=== PATIENT | male | born 1985 | race Caucasian/White ===

== ENCOUNTER 2018-06-30 15:17 | Emergency (ER) | payer OTHER, SELFPAY ==
[2018-06-30 15:20] VITALS: BP 137/109; PULSE 133; RESP 16; TEMP 36.6; BMI 23.8
--- NOTE | 2018-06-30 16:17 | ED.VISSUMM ---
- ER Visit Summary Date of Service: 06/30/18 Chief Complaint: Foreign body History of Present Illness: The patient is a 33 M with a suspected esophageal foreign body. Patient has a history of this. He had an initial injury about 10 years ago with some kind of ingestion that he thinks was a lie which caused a burn and a stricture. He has required dilation. He has been taking omeprazole. Last night he was eating chicken and he thinks a piece stuck. This is happened before and usually it passes by the next day, but today it did not improve. He cannot even pass liquids. No other complaints. Physical Examination: Afebrile and vital signs unremarkable. Alert and oriented. No acute distress. Sitting, breathing, moving comfortably. Lungs are clear. Heart is regular. Abdomen soft. Test Results: None performed Emergency Department Course and Treatment: Patient attempted to pass water but was unable. He then tried to drink Coca-[employer]a through a straw but this was unsuccessful. I spoke with Drs. Holm and Yolande at this facility. They are concerned with his history of stricture and with the duration of this foreign body that he should see a GI specialist. Patient was seen previously in [place] and requested summa. Patient was accepted by Dr. Bradley. Treatment Plan: As above Disposition: Transfer to [facility] ER Impression: 1. Esophageal foreign body This note was generated with [employer] dictation software. It may contain incorrect words, spelling, and punctuation that were not noted in review of the chart prior to signing ED Disposition - Plan for ED Patient: [facility] [Primary Care Provider] -
[2018-06-30 17:33] VITALS: BP 121/83; PULSE 67; RESP 18; O2SAT 99
[2018-06-30 17:51] VITALS: BP 116/80; PULSE 90; RESP 18; O2SAT 99
== END 2018-06-30 18:20 | disposition short-term general hospital (02) ==
PROVIDERS: Emergency Provider Emergency Medicine
DX: T18.128A Food in esophagus causing other injury, initial encounter (principal); X58.XXXA Exposure to other specified factors, initial encounter; Y93.89 Activity, other specified; Y92.9 Unspecified place or not applicable; Y99.9 Unspecified external cause status; Z72.0 Tobacco use
CPT/HCPCS: 99283; A4216